=== PATIENT | female | born 1970 | race Caucasian/White ===

== ENCOUNTER 2023-01-25 19:28 | Emergency (ER) | payer OTHER ==
[2023-01-25 19:44] VITALS: BP 113/74; PULSE 65; RESP 18; TEMP 97.5; BMI 22.2
[2023-01-25] MEDS ORDERED: methylPREDNISolone NA SUCC 125 MG/2 ML VIAL IVPUSH ONE (20:41)
[2023-01-25] MEDS ORDERED: ALBUTEROL SO4 2.5/IPRATROPIUM 0.5 INH SOL 3 ML VIAL.NEB. NEB ONE ×2 (20:41→20:54)
[2023-01-25] MEDS ORDERED: ACETAMINOPHEN 325 MG TABLET (FP) PO ONE (20:42)
[2023-01-25] MEDS ORDERED: methylPREDNISolone NA SUCC 125 MG/2 ML VIAL ONE (20:54)
[2023-01-25] MEDS ORDERED: ACETAMINOPHEN 325 MG TABLET (FP) ONE (20:54)
[2023-01-25 21:23] LABS: BASO % 0.9 % (0-2.0); EOS % 5.7 % (0-4.5); HEMATOCRIT 49.7 % (32.4-45.2); LYMPH % 17.2 % (8-40); MCH 28.5 pg (25.7-33.7); MCHC 34.1 g/dl (32.0-36.0); MEAN CELL VOLUME 83.5 fl (80-96); MEAN PLT VOLUME 7.5 fl (7.5-11.1); MONO % 7.6 % (3.8-10.2); NEUT % 68.6 % (42.8-82.8); PLATELET COUNT 227 10^3/uL (134-434); RBC 5.95 M/mm3 (3.60-5.2); RDW 13.4 % (11.6-15.6)
[2023-01-25 21:25] LABS: VENOUS BASE EXCESS 0.4 mmol/L (-2-2); VENOUS O2 SATURATION 26.8 % (70-80); VENOUS PH 7.246 (7.310-7.410)
[2023-01-25 21:27] LABS: VENOUS PCO2 71.2 mmHg (38-52)
[2023-01-25 21:59] LABS: CALCIUM 9.1 mg/dL (8.5-10.1)
[2023-01-25 22:00] LABS: ALBUMIN 3.6 g/dl (3.4-5.0); BLOOD UREA NITROGEN 10.7 mg/dL (7-18)
[2023-01-25 22:03] LABS: CREATININE 0.6 mg/dL (0.55-1.3)
[2023-01-25 22:04] LABS: BILIRUBIN,TOTAL 0.5 mg/dL (0.2-1)
[2023-01-25] MEDS ORDERED: SODIUM CHLORIDE 0.9% 500 ML INFUS.BAG IV ONE (22:04)
[2023-01-25 22:05] LABS: TOT PROT 8.6 g/dl (6.4-8.2)
[2023-01-25 22:08] LABS: N-TERMINAL BNP 40.5 pg/ml (5-125)
[2023-01-25] MEDS ORDERED: NALOXONE HCL 0.4 MG/ML VIAL IVPUSH ONE (22:21)
[2023-01-25] MEDS ORDERED: NALOXONE HCL 0.4 MG/ML VIAL ONE (22:48)
== END 2023-01-25 23:02 ==
LOC: JER 19:28
PROC: 3E033GC Introduction of Other Therapeutic Substance into Peripheral Vein, Percutaneous Approach (ICD-10-PCS; principal; 2023-01-25)
PROC: 3E033GC Introduction of Other Therapeutic Substance into Peripheral Vein, Percutaneous Approach (ICD-10-PCS; 2023-01-25)
PROC: 3E0F7GC Introduction of Other Therapeutic Substance into Respiratory Tract, Via Natural or Artificial Opening (ICD-10-PCS; 2023-01-25)
DX: R05.9 Cough, unspecified (principal); R07.89 Other chest pain; R00.2 Palpitations; R06.02 Shortness of breath; R50.9 Fever, unspecified; J44.9 Chronic obstructive pulmonary disease, unspecified; F11.90 Opioid use, unspecified, uncomplicated; Z20.822 Contact with and (suspected) exposure to COVID-19
CPT/HCPCS: 0241U-QW; 36415; 71045-TC-FY; 80053; 82803; 83880; 85025; 93005; 93010; 99284-25